=== PATIENT | male | born 1955 | race African-American/Black ===

== ENCOUNTER 2021-06-09 01:21 | Emergency (ER) | payer OTHER ==
[~2021-06-09] VITALS: Ht 172.7 cm; Wt 69.0 kg
[2021-06-09] MEDS ORDERED: ONDANSETRON HCL 4MG/2ML INJ IV STA (02:58)
[2021-06-09] MEDS ORDERED: MORPHINE SULFATE 4 MG/ML CPJ (NOT FOR IM USE) IV STA (02:58)
[2021-06-09 03:22] LABS: BASOPHILS % 1.1 % (0.0-2.0); EOSINOPHILS % 2.8 % (0.0-5.0); HEMATOCRIT. 40.3 % (42.0-52.0); HEMOGLOBIN. 13.4 g/dL (14.0-18.0); LYMPHOCYTES % 22.3 % (20.0-50.0); MEAN CORPUSCULAR HEMOGLOBIN 32.4 pg (28.0-32.0); MEAN CORPUSCULAR VOLUME 97.2 fL (80.0-94.0); MEAN PLATELET VOLUME 8.7 fl (7.4-10.4); MONOCYTES % 10.7 % (2.0-8.0); NEUTROPHILS % 63.1 % (40.0-76.0); PLATELET 304 x1000/uL (130-400); RED BLOOD CELL COUNT 4.15 mill/uL (4.7-6.1); RED CELL DISTRIBUTION WIDTH 13.9 % (11.6-14.6)
[2021-06-09 03:27] LABS: CHLORIDE 107 mEq/L (98-107)
[2021-06-09 07:20] LABS: COLOR URINE RED (YELLOW); KETONES URINE 2+ (NEGATIVE); LEUKOCYTE ESTERASE URINE 2+ (NEGATIVE); NITRITE URINE POSITIVE (NEGATIVE); OCCULT BLOOD URINE 3+ (NEGATIVE); PH URINE 6.5 (4.5-8.0); PROTEIN URINE 4+ (NEGATIVE); SPECIFIC GRAVITY URINE 1.028 (1.005-1.030)
[2021-06-09 07:21] LABS: CLARITY URINE TURBID (CLEAR)
[2021-06-09] MEDS ORDERED: CEFTRIAXONE 1 G PREMIX 50 ML IV ONE (08:30)
[2021-06-09] MEDS ORDERED: MORPHINE SULFATE 4 MG/ML CPJ (NOT FOR IM USE) IV ONE (08:30)
[2021-06-09] MEDS ORDERED: LEVO750T46 PO (09:46)
[2021-06-09] MEDS ORDERED: TOPUD PO (09:46)
[2021-06-09 10:47] VITALS: BP 144/84
== END 2021-06-09 10:51 | disposition home or self-care (01) ==
LOC: ER 01:21
DX: N30.01 Acute cystitis with hematuria (principal); I10 Essential (primary) hypertension
CPT/HCPCS: 36415; 74176; 80053; 81003; 85025; 87086; 96365; 96375; 96376; 99285; J0696; J2270; J2405